=== PATIENT | male | born 1940 | race Caucasian/White ===

== ENCOUNTER 2019-11-01 08:59 | Inpatient (IN) ==
[2019-10-30 16:51] LABS: Appearance Urine Clear (Clear); Bacteria Urine Automated Negative (Negative); Basophils # (auto) 0.02 K/uL (0-0.2); Basophils % (auto) 0.2 %; Blood Urine Negative (Negative); Color Urine Dark Yellow; Eosinophils # (auto) 0.26 K/uL (0-0.5); Eosinophils % (auto) 2.6 %; Glucose Urine UA Negative (Negative); Hematocrit (blood only) 49.4 % (42-52); Hemoglobin 16.8 g/dL (14.0-18.0); Immature Granulocytes # (auto) 0.03 K/uL (0.00-0.02); Immature Granulocytes % (auto) 0.3 %; Ketones Urine 1+ (Negative); Leukocyte Esterase Urine Negative (Negative); Lymphocytes # (auto) 1.16 K/uL (1.2-3.4); Lymphocytes % (auto) 11.7 %; Mean Corpuscular Hemoglobin 30.5 pg (25-34); Mean Corpuscular Volume 89.7 fL (80-100); Mean Platelet Volume 10.4 fL (7.4-10.4); Monocytes # (auto) 0.66 K/uL (0.11-0.59); Monocytes % (auto) 6.7 %; Neutrophils # (auto) 7.76 K/uL (1.4-6.5); Neutrophils % (auto) 78.5 %; Nitrite Urine Negative (Negative); Platelet Count 189 K/uL (130-400); Protein Urine Trace (Negative); RBC Urine Automated 0-4 /hpf (0-4); RDW Coefficient of Variation 14.1 % (11.5-14.5); RDW Standard Deviation 45.9 fL (36.4-46.3); Red Blood Count 5.51 M/uL (4.7-6.1); Specific Gravity Urine 1.027 (1.000-1.030); Urobilinogen Urine Negative (Negative); White Blood Count 9.89 K/uL (4.8-10.8)
[2019-10-30 17:06] LABS: Bilirubin Urine Negative (Negative); Ictotest Urine Negative (Negative)
--- NOTE | 2019-10-31 10:56 | Anesthesiology Consultation ---
Date of Service October 31, 2019 Assessment & Plan Chart Review Chart Review: Pending: Refer to Additional Notes / Consult section and Patient NOT seen in Pre Admission Testing Consults Requested medical (pt had low O2 saturations at an outpatient center. PCP clearance pending) History Surgery Operation Date: 11/01/19 11:45 Proposed Procedures p Left Quad Tendon Repair - Bladimir Rivera MD Height/Weight Height: 5 ft 9 in Weight: 90.718 kg Allergies Allergy/AdvReac Type Severity Reaction Status Date / Time No Known Allergies Allergy Verified 10/31/19 08:37 Medications Home Medications Medication Instructions Recorded Confirmed Last Taken aspirin 81 mg PO HS 10/31/19 10/31/19 Unknown bisoprolol fumarate 5 mg PO QAM 10/31/19 10/31/19 Unknown brimonidine-dorzolamide (PF) 1 drp OPHTHALMIC (EYE) BID 10/31/19 10/31/19 Unknown latanoprost 1 drp OPHTHALMIC (EYE) HS 10/31/19 10/31/19 Unknown multivitamin 1 cap PO QAM 10/31/19 10/31/19 Unknown nifedipine 30 mg PO QAM 10/31/19 10/31/19 Unknown omeprazole 20 mg PO BID 10/31/19 10/31/19 Unknown oxycodone 5 mg PO Q6 PRN 10/31/19 10/31/19 Unknown spironolactone 25 mg PO BID 10/31/19 10/31/19 Unknown tamsulosin [Flomax] 0.4 mg PO HS 10/31/19 10/31/19 Unknown Past Medical History Medical History Anxiety no medications Depression no medications GERD (gastroesophageal reflux disease) Glaucoma History of renal stone Hypertension Low oxygen saturation 10/29/2019 --- was scheduled at [facility] surgery center/O2 sats 75% and they cancelled his procedure and then scheduled him at [facility] Lupus dx 30 years ago/no medications Osteoarthritis Sleep apnea CPAP (occasional use) Past Surgical History Surgical History History of bowel resection 2/2 diverticulitis History of hernia surgery umbilical History of hip surgery Right hip exploration, I&D, abx spacer: 03/08/14: SAB x 1 at L3-L4 at [facility] History of knee replacement procedure of left knee History of knee replacement procedure of right knee History of total right hip replacement Hx of appendectomy Hx of cystoscopy with stone basket retrieval Hx of lithotripsy Social History Smoking Status: Former smoker Do You Dip or Chew Tobacco: No Hx Alcohol Use: No Hx Substance Use: No substance use type: does not use
--- NOTE | 2019-10-31 14:27 | History & Physical Report ---
Date of Service October 31, 2019 Assessment & Plan (1) Rupture quadriceps tendon: Patient suffered a fall on Tuesday and has a ruptured quadricpes tendon. Treatment options were discussed and surgical repair is recommended. Risks, benefits and alternatives to surgery including but not limited to infection, DVT, pain, stiffness, need for revision surgery, damage to blood vessels, damage to nerves, PE, , were discussed with the patient and they wish to proceed. Plan will be for left knee quad tendon repair. He does have history of left knee replacement so will be placed on 1 week of Cefadroxil as precaution. Will plan on 30 days of aspirin 81mg BID for DVT prophylaxis. Will plan on inpatient rehab post operatively as patient is unable to navigate his home and care for himself with his injury. Awaiting PCP clearance given his low O2 sats on 10/29/19. He will follow up in the office post operatively. Encounter type: subsequent encounter Laterality: left Qualified Code(s): S76.112D - Strain of left quadriceps muscle, fascia and tendon, subsequent encounter History of Present Illness Chief Complaint: Left knee pain Primary Care Provider: Armand Brown 79 year old male with PMHx significant for SANGEETHA-c-pap, HTN, possible hx of a heart murmur who presents with acute onset of left knee pain. He suffered a fall on Tuesday and went to ED. Exam and diangostic studies concerning for a rupture of his quad tendon. He has a prior left knee replacement about 10 years ago. He was scheudled for quad tendon repair at [facility] center but was cancelled due to O2 saturations in the mid 80s day of surgery. He was cancelled and rescheduled for [facility] on 11/01/19 pending PCP clearance. He has not respiratory symptoms and denies any SOB. Patient denies headaches, sweats, fevers, chills, double vision, blurred vision, cough, sore throat, dysphagia, chest pain, sob, wheezing, n/v/d/c, numbness, tingling, fatigue, urinary symptoms, mood disorders. ROS positive for left knee pain and stiffness. Allergies Allergy/AdvReac Type Severity Reaction Status Date / Time No Known Allergies Allergy Verified 10/31/19 08:37 Home Medications Home Medications Medication Instructions Recorded Confirmed Type aspirin 81 mg PO HS 10/31/19 10/31/19 History bisoprolol fumarate 5 mg PO QAM 10/31/19 10/31/19 History brimonidine-dorzolamide (PF) 1 drp OPHTHALMIC (EYE) BID 10/31/19 10/31/19 History latanoprost 1 drp OPHTHALMIC (EYE) HS 10/31/19 10/31/19 History multivitamin 1 cap PO QAM 10/31/19 10/31/19 History nifedipine 30 mg PO QAM 10/31/19 10/31/19 History omeprazole 20 mg PO BID 10/31/19 10/31/19 History oxycodone 5 mg PO Q6 PRN 10/31/19 10/31/19 History spironolactone 25 mg PO BID 10/31/19 10/31/19 History tamsulosin [Flomax] 0.4 mg PO HS 10/31/19 10/31/19 History Past Med/Surg History Medical History Anxiety no medications Depression no medications GERD (gastroesophageal reflux disease) Glaucoma History of renal stone Hypertension Low oxygen saturation 10/29/2019 --- was scheduled at [facility] surgery center/O2 sats 75% and they cancelled his procedure and then scheduled him at [facility] Lupus dx 30 years ago/no medications Osteoarthritis Sleep apnea CPAP (occasional use) Surgical History History of bowel resection 2/2 diverticulitis History of hernia surgery umbilical History of hip surgery Right hip exploration, I&D, abx spacer: 03/08/14: SAB x 1 at L3-L4 at [facility] History of knee replacement procedure of left knee History of knee replacement procedure of right knee History of total right hip replacement Hx of appendectomy Hx of cystoscopy with stone basket retrieval Hx of lithotripsy Social History Preferred Language: Mongolian Communication Ability: Effective Ship Steward Required: No Beliefs That Will Affect Care: None Current Living Situation: Alone Other Information That Helps Us Care for You: No Feels Safe at Home: Yes Safety Concerns: Feels Safe At This Time Smoking Status: Former smoker Do You Dip or Chew Tobacco: No ; Second Hand Exposure: No ; Tobacco Cessation Education Requested by Patient: No Hx Alcohol Use: No Hx Substance Use: No Review of Systems All systems reviewed & are unremarkable except as noted in HPI & below Physical Exam Constitutional: well developed and well nourished; no acute distress Eyes: PERRL, conjunctivae normal, anicteric sclerae ENMT: external ear and nose normal, oropharynx normal Neck: trachea midline, no thyromegaly Respiratory: normal respiratory effort, lungs clear to auscultation Cardiovascular: RRR, no murmur, no edema Musculoskeletal: Left knee: Large knee effusion. No erythema, well healed surgical scar. Tenderness proximal patella. Palpable defect quadriceps tendon. Stable to valgus and varus stress. Unable to perform SLR. Skin: no rashes, warm and dry Neurologic: patellar DTR's 2+ bilat, sensation intact Psychiatric: A+Ox3, euthymic affect Results & Data Laboratory Results Lab Results 10/30/19 10/30/19 Range/Units 15:54 15:54 WBC 9.89 (4.8-10.8) K/uL RBC 5.51 (4.7-6.1) M/uL Hgb 16.8 (14.0-18.0) g/dL Hct 49.4 (42-52) % MCV 89.7 (80-100) fL MCH 30.5 (25-34) pg MCHC 34.0 (32-36) g/dL RDW Std Deviation 45.9 (36.4-46.3) fL RDW Coeff of Maria D 14.1 (11.5-14.5) % Plt Count 189 (130-400) K/uL MPV 10.4 (7.4-10.4) fL Immature Gran % (Auto) 0.3 % Neut % (Auto) 78.5 % Lymph % (Auto) 11.7 % [place] % (Auto) 6.7 % Eos % (Auto) 2.6 % Baso % (Auto) 0.2 % Immature Gran # (Auto) 0.03 H (0.00-0.02) K/uL Neut # (Auto) 7.76 H (1.4-6.5) K/uL Lymph # (Auto) 1.16 L (1.2-3.4) K/uL [place] # (Auto) 0.66 H (0.11-0.59) K/uL Eos # (Auto) 0.26 (0-0.5) K/uL Baso # (Auto) 0.02 (0-0.2) K/uL Urine Color Dark Yellow Urine Appearance Clear (Clear) Urine pH 5.0 (4.5-7.5) Ur Specific [place] 1.027 (1.000-1.030) Urine Protein Trace H (Negative) Urine Glucose (UA) Negative (Negative) Urine Ketones 1+ H (Negative) Urine Blood Negative (Negative) Urine Nitrite Negative (Negative) Urine Bilirubin Negative (Negative) Urine Urobilinogen Negative (Negative) Ur Leukocyte Esterase Negative (Negative) Urine WBC (Auto) 1-5 (0-5) /hpf Urine RBC (Auto) 0-4 (0-4) /hpf U Hyaline Cast (Auto) 1-5 (0-5) /lpf U Epithel Cells (Auto) 5-10 H (0-5) /lpf Urine Bacteria (Auto) Negative (Negative) Diagnostic Findings Left knee imaging: Large knee effusion. No fracture read on report, however questionable avulsion superior pole of patella. Left knee replacement without evidence of loosening.
[~2019-11-01 08:59] MED LIST: BUPIVACAINE 0.5 % 5 MG/1 ML PF 10ML VIAL ONE; CEFAZOLIN 2000MG 2,000 MG/15 ML SYR IV SCH; EPINEPHrine INJ 1 MG/ML AMP ONE; ROPIVACAINE 0.5% 5 MG/ML 30 ML VIAL ONE
[2019-11-01] MEDS ORDERED: LIDOCAINE HCL 2% 2 ML VIAL/AMP(20MG/ML) INFIL ONE (09:37)
[2019-11-01] MEDS ORDERED: PROPOFOL IV EMULSION 10 MG/ML 20 ML VIAL IV ONE ×3 (09:37→13:20)
[2019-11-01] MEDS ORDERED: DEXAMETHASONE SOD INJ 4 MG/ML VIAL ONE (09:37)
[2019-11-01] MEDS ORDERED: fentaNYL citrate 100 MCG/2 ML VIAL ONE (09:37)
[2019-11-01] MEDS ORDERED: ONDANSETRON INJ 2 MG/ML 2 ML VIAL ONE ×2 (09:37→13:12)
[2019-11-01] MEDS ORDERED: PHENYLEPHRINE HCL 10 MG/ML VIAL ONE (10:12)
[2019-11-01] MEDS ORDERED: LACTATED RINGER'S 1,000 ML IV SCH (10:15)
--- NOTE | 2019-11-01 10:31 | History & Physical Bridge Note ---
Date of Service November 01, 2019 History & Physical Bridge Note I have examined the patient, reviewed the History & Physical and in the interval since the performance of the History & Physical I have noted the following changes of clinical significance: no changes noted
[2019-11-01 10:34] LABS: BUN Creatinine Ratio 17.4 (10-20); Calcium 9.1 mg/dl (8.5-10.1); Creatinine Clr Calc Pharmacy 58.4 ml/min; Est GFR (African American) 68.6; Est GFR (Non-African American) 59.2
[2019-11-01] MEDS ORDERED: MIDAZOLAM HCL 1 MG/ML 2ML VIAL ONE ×2 (12:12→13:18)
[2019-11-01] MEDS ORDERED: ROPIVACAINE 0.5% 5 MG/ML 30 ML VIAL ONE (12:16)
[2019-11-01] MEDS ORDERED: KETAMINE HCL INJ 50 MG/ML 10 ML VIAL ONE (13:11)
[2019-11-01] MEDS ORDERED: BACITRACIN INJ 50,000 UNIT VIAL ONE (13:11)
--- NOTE | 2019-11-01 14:01 | Operative Report ---
Post Operative Report Pre & Post Diagnosis Operation Date: 11/01/19 11:45 Pre-Op Diagnosis: Left Quad Tendon Tear Post-Op Diagnosis: Left Quad Tendon Tear I identified the patient and participated in the time-out.: Yes Procedure Operation Date: 11/01/19 11:45 Actual Procedures p Left Quad Tendon Repair(Left) - Bladimir Rivera MD Surgeon Bladimir Rivera MD Wastewater Supervisor Cristopher Gilbert PA-C Estimated Blood Loss 20 Findings Consistent with Post-Op Diagnosis Specimens none Drains None Anesthesia Type Spinal MAC Complications none Disposition Accompanied Patient To Recovery: No Disposition: Recovery Room Indications Patient is a 79-year-old male who sustained a fall onto the left leg. He felt a pop in the leg. He had difficulty ambulating. Subsequently presented to the ER where an x-ray as well as CAT scan was obtained. X-rays demonstrated a little bit of patella baja with a significant effusion. CT scan was obtained. This was negative for fracture. The region of the distal aspect of the quad tendon was difficult to really get a good look at secondary to scatter from the knee replacement he had done about 12 to 15 years ago. On examination he had a severe hemarthrosis palpable defect in the region of the distal quad tendon and inability to do straight leg raise. He presents for repair of quad tendon rupture. Description of Procedure Risks benefits and alternatives of surgery including but not limited to infection, DVT, pain, stiffness, need for surgery, damage to blood vessels, john ge to nerves or risks of anesthesia were discussed with the patient and they wished to proceed. The patient was identified and the laterality was confirmed and marked. They received a preoperative antibiotic as well as a spinal anesthetic and an abductor canal block. A well-padded tourniquet was applied and then the limb was prepped and draped in standard manner with ChloraPrep. The limb was exsanguinated and the tourniquet was inflated. I made a standard anterior incision. I sharply incised the skin then utilized Bovie electrocautery to achieve hemostasis. I dissected over the region of the patella. Inspected down distally patellar tendon was normal. Brought my dissection proximally to the region of the quadriceps tendon. There was a tear off of the central pole of the patella. Then there was a tear in a more longitudinal fashion going up from the central pole of the patella into the mid aspect of the quad. The medial side as well as the lateral side appeared to be relatively intact but the central portion had ruptured. I placed a scissors through this and expressed a large amount of old blood. The region was thoroughly irrigated. I then placed a 2.8 mm double loaded Q fix suture anchor into the patella. I then use this to reapproximate both the medial side as well as the lateral side down to the central region of the quad tendon. I then repaired the more longitudinal split with interrupted #2 FiberWire suture. There was a peritenon layer that we closed over the repair with Vicryl. He subcutaneous tissue was closed with interrupted 2-0 Vicryl suture. The skin was closed with calin. A Silverlon dressing was placed. Sterile dressings were applied. All needle and sponge counts were correct at the end of the procedure patient was transferred to the PACU in stable condition without apparent complication. The PA-C was necessary for assistance with procedure for assistance in positioning, prepping, draping, retraction and closure. I attest to the content of the Intraoperative Record and any orders documented therein. Any exceptions are noted below.
[2019-11-01] MEDS ORDERED: ePHEDrine sulfate 50 MG/ML AMP IV PRN (14:41)
[2019-11-01] MEDS ORDERED: ATROPINE SULFATE 0.1 MG/ML 10ML SYR IV PRN (14:41)
[2019-11-01] MEDS ORDERED: ONDANSETRON INJ 2 MG/ML 2 ML VIAL IV PRN (14:41)
[2019-11-01] MEDS ORDERED: HYDROmorphone INJ 1 MG/ML SYRINGE IV PRN (14:41)
[2019-11-01] MEDS ORDERED: fentaNYL citrate 100 MCG/2 ML VIAL IV PRN (14:41)
--- NOTE | 2019-11-01 14:50 | XRay Report ---
LEFT KNEE 2 VIEWS History: Left total knee arthroplasty. Degenerative arthritis. Postop. FINDINGS: The patient is status post a left total knee arthroplasty. The hardware is intact. No fract ure or dislocation. Skin calin are in place. IMPRESSION: Left total knee arthroplasty. No evidence for hardware complication. Electronically signed by: Meliton Salgado M.D. 11/01/2019 2:49 PM
--- NOTE | 2019-11-01 15:37 | Anesthesiology Progress Note ---
Date of Service November 01, 2019 Anesthesia Post Procedure Vital Signs Vital Signs: Temp Pulse Pulse Resp BP Pulse Ox 11/01/19 15:30 61 21 117/89 96 11/01/19 15:20 60 15 110/73 100 11/01/19 15:10 68 15 117/77 96 11/01/19 15:00 68 19 118/78 92 11/01/19 14:50 67 16 112/79 94 11/01/19 14:40 69 17 111/75 98 11/01/19 14:30 76 19 112/79 93 11/01/19 14:20 74 20 108/79 96 11/01/19 14:10 37.0 C 85 20 99/73 L 96 11/01/19 09:51 36.6 C 67 20 139/89 93 Pain Intensity Left Knee: Pain Intensity: 10 Transfer of Care Handoff Completed per policy Notes Mental Status: alert / awake / arousable and participated in evaluation Patient Amnestic to Procedure: Yes Nausea / Vomiting: adequately controlled Pain: adequately controlled Airway Patency, RR, SpO2: stable & adequate BP & HR: stable & adequate Hydration State: stable & adequate Neuraxial Anesthesia: was administered and sensory block is resolving Anesthetic Complications: no major complications apparent and Pt Satisfied with anesthetic care
[2019-11-01] MEDS ORDERED: NALOXONE HCL 0.4 MG/1 ML VIAL/CARP IV PRN (16:24)
[2019-11-01] MEDS ORDERED: HYDROmorphone INJ 0.5 MG/0.5 ML SYR IV PRN (16:24)
[2019-11-01] MEDS ORDERED: COUGH DROP (SUGAR FREE) LOZ 24 LOZ/1 BOX BUCCAL PRN (18:01)
[2019-11-01] MEDS: CEFAZOLIN 2000MG 2,000 MG/15 ML SYR IV SCH (18:03)
[2019-11-01] MEDS: SPIRONOLACTONE 25 MG TAB PO SCH (18:03)
[2019-11-01] MEDS: OXYCODONE HCL IR 5 MG TAB (IMMEDIATE RELEASE) PO PRN (19:22)
[2019-11-01] MEDS: TAMSULOSIN HCL 0.4 MG CAP PO SCH (21:08)
[2019-11-01] MEDS: ASPIRIN 81 MG ECTAB PO SCH (21:08)
[2019-11-01] MEDS: ACETAMINOPHEN 500 MG TAB PO SCH (21:09)
[2019-11-01] MEDS: PANTOprazole 40 MG TAB PO SCH (21:09)
[2019-11-01] MEDS: LATANOPROST 0.005% OP SOLN 2.5 ML BTL OP SCH (21:11)
[2019-11-01] MEDS: SODIUM CHLORIDE 0.9% 1000ML 1,000 ML IV SCH ×2 (23:40→23:41)
[2019-11-02] MEDS: CEFAZOLIN 2000MG 2,000 MG/15 ML SYR IV SCH (02:05)
[2019-11-02] MEDS: OXYCODONE HCL IR 5 MG TAB (IMMEDIATE RELEASE) PO PRN ×3 (03:43→19:38)
[2019-11-02 06:05] LABS: Hematocrit (blood only) 43.1 % (42-52); Hemoglobin 14.6 g/dL (14.0-18.0); Mean Corpuscular Hgb Conc 33.9 g/dL (32-36); Mean Corpuscular Volume 88.5 fL (80-100); Mean Platelet Volume 10.1 fL (7.4-10.4); Platelet Count 164 K/uL (130-400); RDW Coefficient of Variation 13.9 % (11.5-14.5); RDW Standard Deviation 45.2 fL (36.4-46.3); Red Blood Count 4.87 M/uL (4.7-6.1); White Blood Count 7.78 K/uL (4.8-10.8)
[2019-11-02] MEDS: ACETAMINOPHEN 500 MG TAB PO SCH ×3 (06:12→21:46)
[2019-11-02] MEDS: SPIRONOLACTONE 25 MG TAB PO SCH ×2 (06:12→11:42)
[2019-11-02 06:44] LABS: BUN Creatinine Ratio 16.4 (10-20); Calcium 8.4 mg/dl (8.5-10.1); Creatinine Clr Calc Pharmacy 62.6 ml/min; Est GFR (African American) 74.7; Est GFR (Non-African American) 64.4
--- NOTE | 2019-11-02 07:19 | Orthopedic Progress Note ---
Date of Service November 02, 2019 Assessment & Plan (1) Rupture quadriceps tendon: POD#1 left knee quad tendon repair -Pain management -DVT prophylaxis-SCDs, aspirin 81mg BID -PT/OT-May be WBAT with brace locked in extension -D/C planning-will plan on inpatient rehab facility depending on insurance auth. Subjective Patient resting in bed comfortably this morning, pain is controlled with medication. No complaints of chest pain, sob, dizziness, n/v/d. Review of Systems Review of Systems: All systems reviewed & are unremarkable except as noted in HPI & below Physical Exam Physical Exam: Left knee: Dressing is c/d/i, no calf tenderness. toes mobile, good dorsilfexion. distally n/v status and sensation intact. Constitutional: well developed and well nourished; no acute distress Results & Data Vital Signs (Past 12 Hours) Vital Signs Temp Pulse Pulse Resp BP Pulse Ox Pulse Ox 11/02/19 06:10 36.8 C 60 20 127/83 93 11/02/19 03:31 37.2 C 59 L 20 138/82 95 11/01/19 23:43 92 11/01/19 23:22 37.4 C 72 20 135/79 93 11/01/19 22:20 62 25 H 93 Laboratory Results Lab Results 10/30/19 10/30/19 11/01/19 Range/Units 15:54 15:54 09:56 WBC 9.89 (4.8-10.8) K/uL RBC 5.51 (4.7-6.1) M/uL Hgb 16.8 (14.0-18.0) g/dL Hct 49.4 (42-52) % MCV 89.7 (80-100) fL MCH 30.5 (25-34) pg MCHC 34.0 (32-36) g/dL RDW Std Deviation 45.9 (36.4-46.3) fL RDW Coeff of Maria D 14.1 (11.5-14.5) % Plt Count 189 (130-400) K/uL MPV 10.4 (7.4-10.4) fL Immature Gran % (Auto) 0.3 % Neut % (Auto) 78.5 % Lymph % (Auto) 11.7 % [place] % (Auto) 6.7 % Eos % (Auto) 2.6 % Baso % (Auto) 0.2 % Immature Gran # (Auto) 0.03 H (0.00-0.02) K/uL Neut # (Auto) 7.76 H (1.4-6.5) K/uL Lymph # (Auto) 1.16 L (1.2-3.4) K/uL [place] # (Auto) 0.66 H (0.11-0.59) K/uL Eos # (Auto) 0.26 (0-0.5) K/uL Baso # (Auto) 0.02 (0-0.2) K/uL Sodium 138 (136-145) mmol/L Potassium 4.0 (3.5-5.1) mmol/L Chloride 110 H (98-107) mmol/L Carbon Dioxide 22 (21-32) mmol/L Anion Gap 6.0 (3-11) BUN 21 H (7-18) mg/dl Creatinine 1.18 (0.6-1.4) mg/dl Est Cr Clr Drug Dosing 58.4 ml/min Est GFR ( Amer) 68.6 Est GFR (Non-Af Amer) 59.2 BUN/Creatinine Ratio 17.4 (10-20) Glucose 132 H (70-99) mg/dl Calcium 9.1 (8.5-10.1) mg/dl Urine Color Dark Yellow Urine Appearance Clear (Clear) Urine pH 5.0 (4.5-7.5) Ur Specific [place] 1.027 (1.000-1.030) Urine Protein Trace H (Negative) Urine Glucose (UA) Negative (Negative) Urine Ketones 1+ H (Negative) Urine Blood Negative (Negative) Urine Nitrite Negative (Negative) Urine Bilirubin Negative (Negative) Urine Urobilinogen Negative (Negative) Ur Leukocyte Esterase Negative (Negative) Urine WBC (Auto) 1-5 (0-5) /hpf Urine RBC (Auto) 0-4 (0-4) /hpf U Hyaline Cast (Auto) 1-5 (0-5) /lpf U Epithel Cells (Auto) 5-10 H (0-5) /lpf Urine Bacteria (Auto) Negative (Negative) 11/02/19 11/02/19 Range/Units 05:34 05:34 WBC 7.78 (4.8-10.8) K/uL RBC 4.87 (4.7-6.1) M/uL Hgb 14.6 (14.0-18.0) g/dL Hct 43.1 (42-52) % MCV 88.5 (80-100) fL MCH 30.0 (25-34) pg MCHC 33.9 (32-36) g/dL RDW Std Deviation 45.2 (36.4-46.3) fL RDW Coeff of Maria D 13.9 (11.5-14.5) % Plt Count 164 (130-400) K/uL MPV 10.1 (7.4-10.4) fL Immature Gran % (Auto) % Neut % (Auto) % Lymph % (Auto) % [place] % (Auto) % Eos % (Auto) % Baso % (Auto) % Immature Gran # (Auto) (0.00-0.02) K/uL Neut # (Auto) (1.4-6.5) K/uL Lymph # (Auto) (1.2-3.4) K/uL [place] # (Auto) (0.11-0.59) K/uL Eos # (Auto) (0-0.5) K/uL Baso # (Auto) (0-0.2) K/uL Sodium 137 (136-145) mmol/L Potassium (3.5-5.1) mmol/L Chloride 108 H (98-107) mmol/L Carbon Dioxide 24 (21-32) mmol/L Anion Gap 5.0 (3-11) BUN 18 (7-18) mg/dl Creatinine 1.10 (0.6-1.4) mg/dl Est Cr Clr Drug Dosing 62.6 ml/min Est GFR ( Amer) 74.7 Est GFR (Non-Af Amer) 64.4 BUN/Creatinine Ratio 16.4 (10-20) Glucose 122 H (70-99) mg/dl Calcium 8.4 L (8.5-10.1) mg/dl Urine Color Urine Appearance (Clear) Urine pH (4.5-7.5) Ur Specific [place] (1.000-1.030) Urine Protein (Negative) Urine Glucose (UA) (Negative) Urine Ketones (Negative) Urine Blood (Negative) Urine Nitrite (Negative) Urine Bilirubin (Negative) Urine Urobilinogen (Negative) Ur Leukocyte Esterase (Negative) Urine WBC (Auto) (0-5) /hpf Urine RBC (Auto) (0-4) /hpf U Hyaline Cast (Auto) (0-5) /lpf U Epithel Cells (Auto) (0-5) /lpf Urine Bacteria (Auto) (Negative) (1) Rupture quadriceps tendon Encounter type: subsequent encounter Laterality: left Qualified Code(s): S76.112D - Strain of left quadriceps muscle, fascia and tendon, subsequent encounter
--- NOTE | 2019-11-02 07:58 | Anesthesiology Progress Note ---
Date of Service November 02, 2019 Anesthesia Post Procedure Vital Signs Vital Signs: Temp Pulse Pulse Pulse Pulse Resp BP 11/02/19 06:10 36.8 C 60 20 127/83 11/02/19 03:31 37.2 C 59 L 20 138/82 11/01/19 23:43 11/01/19 23:22 37.4 C 72 20 135/79 11/01/19 22:20 62 25 H 11/01/19 19:02 36.8 C 64 16 144/87 H 11/01/19 18:00 72 18 154/98 H 11/01/19 17:04 36.2 C L 63 18 142/89 H 11/01/19 16:31 36.3 C L 58 L 16 133/91 11/01/19 16:00 36.5 C 63 18 127/81 11/01/19 15:45 65 19 119/86 11/01/19 15:30 36.2 C L 61 21 117/89 11/01/19 15:20 60 15 110/73 11/01/19 15:10 68 15 117/77 11/01/19 15:00 68 19 118/78 11/01/19 14:50 67 16 112/79 11/01/19 14:40 69 17 111/75 11/01/19 14:30 76 19 112/79 11/01/19 14:20 74 20 108/79 11/01/19 14:10 37.0 C 85 20 99/73 L 11/01/19 09:51 36.6 C 67 20 139/89 Pulse Ox Pulse Ox 11/02/19 06:10 93 11/02/19 03:31 95 11/01/19 23:43 92 11/01/19 23:22 93 11/01/19 22:20 93 11/01/19 19:02 94 11/01/19 18:00 96 11/01/19 17:04 97 11/01/19 16:31 94 11/01/19 16:00 93 11/01/19 15:45 96 11/01/19 15:30 96 11/01/19 15:20 100 11/01/19 15:10 96 11/01/19 15:00 92 11/01/19 14:50 94 11/01/19 14:40 98 11/01/19 14:30 93 11/01/19 14:20 96 11/01/19 14:10 96 11/01/19 09:51 93 Pain Intensity Left Knee: Pain Intensity: 10 Notes Mental Status: alert / awake / arousable and participated in evaluation Patient Amnestic to Procedure: Yes Nausea / Vomiting: adequately controlled Pain: adequately controlled Airway Patency, RR, SpO2: stable & adequate BP & HR: stable & adequate Hydration State: stable & adequate Anesthetic Complications: no major complications apparent
[2019-11-02] MEDS: ASPIRIN 81 MG ECTAB PO SCH ×2 (08:21→21:49)
[2019-11-02] MEDS: PANTOprazole 40 MG TAB PO SCH ×2 (08:21→21:45)
[2019-11-02] MEDS: MULTIVITAMIN TAB PO SCH (08:21)
[2019-11-02] MEDS: METOPROLOL TARTRATE 50 MG TAB PO SCH ×2 (08:22→21:47)
[2019-11-02] MEDS: LATANOPROST 0.005% OP SOLN 2.5 ML BTL OP SCH (21:49)
[2019-11-02] MEDS: TAMSULOSIN HCL 0.4 MG CAP PO SCH (21:49)
[2019-11-03] MEDS: OXYCODONE HCL IR 5 MG TAB (IMMEDIATE RELEASE) PO PRN ×2 (01:00→07:35)
[2019-11-03] MEDS: SPIRONOLACTONE 25 MG TAB PO SCH ×2 (06:22→11:45)
[2019-11-03] MEDS: ACETAMINOPHEN 500 MG TAB PO SCH ×3 (06:22→21:58)
[2019-11-03] MEDS: MULTIVITAMIN TAB PO SCH (07:36)
[2019-11-03] MEDS: PANTOprazole 40 MG TAB PO SCH ×2 (07:36→20:12)
[2019-11-03] MEDS: ASPIRIN 81 MG ECTAB PO SCH ×2 (07:36→20:12)
[2019-11-03] MEDS: METOPROLOL TARTRATE 50 MG TAB PO SCH ×2 (07:36→20:12)
--- NOTE | 2019-11-03 08:13 | Orthopedic Progress Note ---
Date of Service November 03, 2019 Assessment & Plan (1) Rupture quadriceps tendon: POD#2 left knee quad tendon repair -Pain management -DVT prophylaxis-SCDs, aspirin 81mg BID -PT/OT-May be WBAT with brace locked in extension -D/C planning-will plan on inpatient rehab facility depending on insurance auth. Discussed with case management. Plan for [facility] if authorization is approved. Subjective Patient currently sitting at the bedside finishing his breakfast. He has no overt complaints this morning. Pain is controlled. He notes that he does have some swelling in the knee. Currently wearing his hinged knee brace. Discussed plans for discharge. Patient is considering [facility] for short stay before returning home. Will discuss with case management. Otherwise he is feeling well and has no complaints. Physical Exam Physical Exam: Dressings are clean, dry, and intact. Hinged knee brace is currently on and well-positioned. Calves are soft and nontender. Neurovascular is intact. Toes are mobile. Results & Data Vital Signs (Past 12 Hours) Vital Signs Temp Pulse Pulse Resp BP BP Pulse Ox 11/03/19 06:56 37 C 78 18 143/89 H 92 11/02/19 23:45 36.9 C 63 16 138/83 95 11/02/19 22:05 65 18 94 (1) Rupture quadriceps tendon Encounter type: subsequent encounter Laterality: left Qualified Code(s): S76.112D - Strain of left quadriceps muscle, fascia and tendon, subsequent encounter
[2019-11-03] MEDS: TAMSULOSIN HCL 0.4 MG CAP PO SCH (20:12)
[2019-11-03] MEDS: LATANOPROST 0.005% OP SOLN 2.5 ML BTL OP SCH (20:13)
[2019-11-04] MEDS: ACETAMINOPHEN 500 MG TAB PO SCH ×3 (05:58→21:31)
[2019-11-04] MEDS: SPIRONOLACTONE 25 MG TAB PO SCH ×2 (05:58→11:30)
--- NOTE | 2019-11-04 07:42 | Orthopedic Progress Note ---
Date of Service November 04, 2019 Assessment & Plan (1) Rupture quadriceps tendon: POD#3 left knee quad tendon repair -Pain management -DVT prophylaxis-SCDs, aspirin 81mg BID -PT/OT-May be WBAT with brace locked in extension -D/C planning-will plan on inpatient rehab facility depending on insurance auth. Discussed with case management. Plan for [facility] rehab if authorization is approved. Subjective Patient sitting up in bed eating breakfast. No complaints this morning pain is controlled and he is feeling well. Denies shortness of breath, chest pain, lightheadedness. Physical Exam 2 Physical Exam: Silverlon dressing is clean, dry, intact. Mild drainage noted in the dressing window. Mild swelling around the knee itself. Calves are soft and nontender. Neurovascular is intact. Hinged knee brace is in place. Results & Data Vital Signs (Past 12 Hours) Vital Signs Temp Pulse Pulse Pulse Resp BP BP 11/03/19 23:25 70 21 11/03/19 23:20 36.9 C 72 18 151/92 H 11/03/19 20:20 36.9 C 74 17 135/89 11/03/19 20:10 80 138/90 Pulse Ox 11/03/19 23:25 97 11/03/19 23:20 95 11/03/19 20:20 95 11/03/19 20:10 (1) Rupture quadriceps tendon Encounter type: subsequent encounter Laterality: left Qualified Code(s): S76.112D - Strain of left quadriceps muscle, fascia and tendon, subsequent encounter
[2019-11-04] MEDS: ASPIRIN 81 MG ECTAB PO SCH ×2 (08:05→22:25)
[2019-11-04] MEDS: MULTIVITAMIN TAB PO SCH (08:05)
[2019-11-04] MEDS: PANTOprazole 40 MG TAB PO SCH ×2 (08:05→21:32)
[2019-11-04] MEDS: METOPROLOL TARTRATE 50 MG TAB PO SCH ×2 (08:05→21:31)
[2019-11-04] MEDS: OXYCODONE HCL IR 5 MG TAB (IMMEDIATE RELEASE) PO PRN (10:43)
[2019-11-04] MEDS ORDERED: Nursing to Pharmacy Communication ONE (16:20)
[2019-11-04] MEDS: BRIMONIDINE TARTRATE-P 0.15% 5 ML BTL OP SCH (17:07)
[2019-11-04] MEDS: DORZOLAMIDE HCL 2% OPH SOLN 10 ML BTL OP SCH (17:20)
[2019-11-04] MEDS: TAMSULOSIN HCL 0.4 MG CAP PO SCH (21:31)
[2019-11-04] MEDS: LATANOPROST 0.005% OP SOLN 2.5 ML BTL OP SCH (21:33)
[2019-11-05] MEDS: SPIRONOLACTONE 25 MG TAB PO SCH ×2 (05:53→12:38)
[2019-11-05] MEDS: ACETAMINOPHEN 500 MG TAB PO SCH (05:53)
--- NOTE | 2019-11-05 07:20 | Orthopedic Progress Note ---
Date of Service November 05, 2019 Assessment & Plan (1) Rupture quadriceps tendon: POD#4 left knee quad tendon repair -Pain management -DVT prophylaxis-SCDs, aspirin 81mg BID -PT/OT-May be WBAT with brace locked in extension -D/C planning-will plan on inpatient rehab facility depending on insurance auth. Plan for [facility] [place] rehab if authorization is approved. Discharge hopefully today depending on insurance auth. Subjective Patient sitting up getting ready for the day. No complaints this morning pain is controlled and he is feeling well. He is ambulating better and states pain is improving. Denies shortness of breath, chest pain, lightheadedness. Review of Systems Review of Systems: All systems reviewed & are unremarkable except as noted in HPI & below Physical Exam Physical Exam: Left knee: Silverlon c/d/i. Bandera brace in place. No calf tenderness. Toes mobile. Distally n/v status and sensation intact. Mild swelling of left knee. Constitutional: well developed and well nourished; no acute distress Results & Data Vital Signs (Past 12 Hours) Vital Signs Temp Pulse Pulse Pulse Resp BP Pulse Ox 11/05/19 06:47 36.7 C 63 18 150/90 H 93 11/05/19 05:51 62 150/95 H 11/04/19 23:40 36.8 C 58 L 16 144/91 H 94 11/04/19 21:30 69 152/75 H 11/04/19 21:00 87 18 95 (1) Rupture quadriceps tendon Encounter type: subsequent encounter Laterality: left Qualified Code(s): S76.112D - Strain of left quadriceps muscle, fascia and tendon, subsequent encounter
[2019-11-05] MEDS: OXYCODONE HCL IR 5 MG TAB (IMMEDIATE RELEASE) PO PRN ×2 (08:13→13:08)
[2019-11-05] MEDS: BRIMONIDINE TARTRATE-P 0.15% 5 ML BTL OP SCH (08:14)
[2019-11-05] MEDS: MULTIVITAMIN TAB PO SCH (08:14)
[2019-11-05] MEDS: METOPROLOL TARTRATE 50 MG TAB PO SCH (08:14)
[2019-11-05] MEDS: ASPIRIN 81 MG ECTAB PO SCH (08:14)
[2019-11-05] MEDS: DORZOLAMIDE HCL 2% OPH SOLN 10 ML BTL OP SCH (08:22)
[2019-11-05] MEDS: PANTOprazole 40 MG TAB PO SCH (08:49)
--- NOTE | 2019-11-05 12:28 | Discharge Summary ---
Date of Service November 05, 2019 Admission HPI Per Admitting Provider 79 year old male with PMHx significant for SANGEETHA-c-pap, HTN, possible hx of a heart murmur who presents with acute onset of left knee pain. He suffered a fall on Tuesday and went to ED. Exam and diangostic studies concerning for a rupture of his quad tendon. He has a prior left knee replacement about 10 years ago. He was scheudled for quad tendon repair at [facility] but was cancelled due to O2 saturations in the mid 80s day of surgery. He was cancelled and rescheduled for [facility] on 11/01/19 pending PCP clearance. He has not respiratory symptoms and denies any SOB. Patient denies headaches, sweats, fevers, chills, double vision, blurred vision, cough, sore throat, dysphagia, chest pain, sob, wheezing, n/v/d/c, numbness, tingling, fatigue, urinary symptoms, mood disorders. ROS positive for left knee pain and stiffness. Admission Exam Per Admitting Provider Constitutional: well developed and well nourished; no acute distress Eyes: PERRL, conjunctivae normal, anicteric sclerae ENMT: external ear and nose normal, oropharynx normal Neck: trachea midline, no thyromegaly Respiratory: normal respiratory effort, lungs clear to auscultation Cardiovascular: RRR, no murmur, no edema Musculoskeletal: Left knee: Large knee effusion. No erythema, well healed surgical scar. Tenderness proximal patella. Palpable defect quadriceps tendon. Stable to valgus and varus stress. Unable to perform SLR. Skin: no rashes, warm and dry Neurologic: patellar DTR's 2+ bilat, sensation intact Psychiatric: A+Ox3, euthymic affect Principal Diagnosis Left knee quad tendon tear Discharge Exam Constitutional well developed and well nourished; no acute distress Eyes PERRL, conjunctivae normal, anicteric sclerae ENMT external ear and nose normal, oropharynx normal Neck trachea midline, no thyromegaly Respiratory normal respiratory effort, lungs clear to auscultation Cardiovascular RRR, no murmur, no edema Skin no rashes, warm and dry Neurologic patellar DTR's 2+ bilat, sensation intact Psychiatric A+Ox3, euthymic affect Discharge Data Allergies Allergy/AdvReac Type Severity Reaction Status Date / Time No Known Allergies Allergy Verified 11/01/19 09:47 Consultations 11/01/19 16:24 Consult Case Management - Discharge Planning Routine Procedures Performed Operation Date: 11/01/19 11:45 Actual Procedures p Left Quad Tendon Repair(Left) - Bladimir Rivera MD Ordered Studies 11/01/19 12:40 US - OR guided needle placemen Routine Hospital Course (1) Rupture quadriceps tendon: Patient presented for same day admission following left knee open quad tendon repair on 11/01/19. He tolerated procedure well. He was admitted for pain control as well as need for inpatient rehab upon discharge. The Patient had an uneventful hospital course. Post-operatively, his activity was progressed and well tolerated. They participated in PT with ambulation distance of 550 feet. Labs remained stable. Pain controlled on oral medications. Please refer to daily progress notes and PT notes for complete details. After exam on 11/05/19, patient was felt to be stable for discharge after acceptance to [facility]. Patient will f/u in the office in about 2 weeks for further evaluation and incision check, sooner if having any issues or concerns. Lab Results 10/30/19 10/30/19 11/01/19 Range/Units 15:54 15:54 09:56 WBC 9.89 (4.8-10.8) K/uL RBC 5.51 (4.7-6.1) M/uL Hgb 16.8 (14.0-18.0) g/dL Hct 49.4 (42-52) % MCV 89.7 (80-100) fL MCH 30.5 (25-34) pg MCHC 34.0 (32-36) g/dL RDW Std Deviation 45.9 (36.4-46.3) fL RDW Coeff of Maria D 14.1 (11.5-14.5) % Plt Count 189 (130-400) K/uL MPV 10.4 (7.4-10.4) fL Immature Gran % (Auto) 0.3 % Neut % (Auto) 78.5 % Lymph % (Auto) 11.7 % [place] % (Auto) 6.7 % Eos % (Auto) 2.6 % Baso % (Auto) 0.2 % Immature Gran # (Auto) 0.03 H (0.00-0.02) K/uL Neut # (Auto) 7.76 H (1.4-6.5) K/uL Lymph # (Auto) 1.16 L (1.2-3.4) K/uL [place] # (Auto) 0.66 H (0.11-0.59) K/uL Eos # (Auto) 0.26 (0-0.5) K/uL Baso # (Auto) 0.02 (0-0.2) K/uL Sodium 138 (136-145) mmol/L Potassium 4.0 (3.5-5.1) mmol/L Chloride 110 H (98-107) mmol/L Carbon Dioxide 22 (21-32) mmol/L Anion Gap 6.0 (3-11) BUN 21 H (7-18) mg/dl Creatinine 1.18 (0.6-1.4) mg/dl Est Cr Clr Drug Dosing 58.4 ml/min Est GFR ( Amer) 68.6 Est GFR (Non-Af Amer) 59.2 BUN/Creatinine Ratio 17.4 (10-20) Glucose 132 H (70-99) mg/dl Calcium 9.1 (8.5-10.1) mg/dl Urine Color Dark Yellow Urine Appearance Clear (Clear) Urine pH 5.0 (4.5-7.5) Ur Specific [place] 1.027 (1.000-1.030) Urine Protein Trace H (Negative) Urine Glucose (UA) Negative (Negative) Urine Ketones 1+ H (Negative) Urine Blood Negative (Negative) Urine Nitrite Negative (Negative) Urine Bilirubin Negative (Negative) Urine Urobilinogen Negative (Negative) Ur Leukocyte Esterase Negative (Negative) Urine WBC (Auto) 1-5 (0-5) /hpf Urine RBC (Auto) 0-4 (0-4) /hpf U Hyaline Cast (Auto) 1-5 (0-5) /lpf U Epithel Cells (Auto) 5-10 H (0-5) /lpf Urine Bacteria (Auto) Negative (Negative) 11/02/19 11/02/19 11/02/19 Range/Units 05:34 05:34 07:21 WBC 7.78 (4.8-10.8) K/uL RBC 4.87 (4.7-6.1) M/uL Hgb 14.6 (14.0-18.0) g/dL Hct 43.1 (42-52) % MCV 88.5 (80-100) fL MCH 30.0 (25-34) pg MCHC 33.9 (32-36) g/dL RDW Std Deviation 45.2 (36.4-46.3) fL RDW Coeff of Maria D 13.9 (11.5-14.5) % Plt Count 164 (130-400) K/uL MPV 10.1 (7.4-10.4) fL Immature Gran % (Auto) % Neut % (Auto) % Lymph % (Auto) % [place] % (Auto) % Eos % (Auto) % Baso % (Auto) % Immature Gran # (Auto) (0.00-0.02) K/uL Neut # (Auto) (1.4-6.5) K/uL Lymph # (Auto) (1.2-3.4) K/uL [place] # (Auto) (0.11-0.59) K/uL Eos # (Auto) (0-0.5) K/uL Baso # (Auto) (0-0.2) K/uL Sodium 137 (136-145) mmol/L Potassium 4.0 (3.5-5.1) mmol/L Chloride 108 H (98-107) mmol/L Carbon Dioxide 24 (21-32) mmol/L Anion Gap 5.0 (3-11) BUN 18 (7-18) mg/dl Creatinine 1.10 (0.6-1.4) mg/dl Est Cr Clr Drug Dosing 62.6 ml/min Est GFR ( Amer) 74.7 Est GFR (Non-Af Amer) 64.4 BUN/Creatinine Ratio 16.4 (10-20) Glucose 122 H (70-99) mg/dl Calcium 8.4 L (8.5-10.1) mg/dl Urine Color Urine Appearance (Clear) Urine pH (4.5-7.5) Ur Specific [place] (1.000-1.030) Urine Protein (Negative) Urine Glucose (UA) (Negative) Urine Ketones (Negative) Urine Blood (Negative) Urine Nitrite (Negative) Urine Bilirubin (Negative) Urine Urobilinogen (Negative) Ur Leukocyte Esterase (Negative) Urine WBC (Auto) (0-5) /hpf Urine RBC (Auto) (0-4) /hpf U Hyaline Cast (Auto) (0-5) /lpf U Epithel Cells (Auto) (0-5) /lpf Urine Bacteria (Auto) (Negative) Total Time Total Time Spent Total Time Spent (In Minutes): 20 Discharge Plan Discharge Items Patient Disposition: Transfer Inpatient Rehab Fac Reason For Visit: Left Quad Tendon Tear Discharge Diagnosis: Left quadriceps tendon tear Activity: Per Instructions section Weightbearing: Left weightbearing Weightbearing Comment: As tolerated with walker or crutches with immobilizer on at all times. Non-emergency contact: Surgeon Call non-emergency contact if: your pain is not controlled, your temperature is above 101.5, your wound has increased redness and your wound has increased drainage Follow-up/Referrals: Armand Brown DO [Primary Care Provider] - Diet: Regular Addtl Attending Provider Instructions: -Use hinged knee brace at all times locked in extension. May remove for bathing and getting dressed. Minimal bending of the left knee if at all possible when getting dressed or bathing while the brace is not on. -Keep the left lower extremity elevated on 1 or 2 pillows when at rest. This will help with swelling. -Ice to the left knee regularly. -You can be weightbearing as tolerated on the left lower extremity with the use of a walker or crutches. -Please call the office with any questions. [phone] -Silverlon- This is a large adhesive bandage that contains silver ions. This helps your incision heal by fighting off bacteria and protecting it from the outside environment. You are permitted to shower with this dressing. This will remain on your incision for 7 days and then should be removed. Some visible blood or drainage through the dressing window is normal. If there is significant drainage or leaking noted before the 7 days notify your doctor's office immediately. Once removed, keep incision clean and dry. If there is any drainage or redness noted, please call your surgeon. Once removed, you may shower. No tub baths. Do not soak the wound. Follow-up with Dr. mcadams in 2 weeks. Call for an appointment if one has not been made for you. [phone] Pending Studies at Discharge: No Stand-Alone Forms: My [facility] Skilled Items Patient informed of condition?: Yes DNR: No Discharge Level of Care: Acute rehab Communicable Disease: No Discharge Prognosis: Stable Lines: None Urinary Catheter: No Medications and DC Order Prescriptions: New acetaminophen [Tylenol Extra Strength] 500 mg Tablet 1,000 mg PO Q8 14 Days Qty: 84 RF: 0 aspirin [Ecotrin Low Strength] 81 mg Tablet,Delayed Release (Dr/Ec) 81 mg PO BID 30 Days Qty: 60 RF: 0 oxycodone 5 mg Tablet 5 mg PO Q4H PRN (Reason: pain) Qty: 30 RF: 0 Continued latanoprost [Xalatan] 0.005 % Drops 1 drp OPHTHALMIC (EYE) HS RF: 0 spironolactone [Aldactone] 25 mg Tablet 25 mg PO BID RF: 0 bisoprolol fumarate 5 mg Tablet 5 mg PO QAM RF: 0 tamsulosin [Flomax] 0.4 mg Capsule 0.4 mg PO HS RF: 0 multivitamin Capsule 1 cap PO QAM RF: 0 omeprazole 20 mg Tablet,Delayed Release (Dr/Ec) 20 mg PO BID RF: 0 brimonidine-dorzolamide (PF) 0.15-2 % Drops 1 drp OPHTHALMIC (EYE) BID RF: 0 Discontinued oxycodone 5 mg Capsule 5 mg PO Q6 PRN (Reason: Pain) RF: 0 aspirin 81 mg Tablet,Chewable 81 mg PO HS RF: 0 Discharge Orders: Discharge Order (Routine); Ordered 11/05/19 Ordered By: Pal Brown Admission Data Admit Date/Time: 11/01/19 14:25 Attending Provider: Bladimir Rivera Admit Provider: Bladimir Rivera Primary Care Provider: Armand Brown
== END 2019-11-05 13:58 | DRG 502 ==
LOC: ASU 08:59 → 3E 14:25